=== PATIENT | female | born 1960 | race Caucasian/White ===

== ENCOUNTER → 2016-04-28 | Outpatient (CLI) | payer MEDICAID ==
[~2016-04-28] MED LIST: ASPIRIN LO-DOSE81 MG PO; BUMEX1 MG PO; COLACE100 MG PO; CORDARONE,PACE200 MG PO; COREG12.5 MG PO; CRANBERRY-PROB1 EACH PO; DIGESTIVE PROB250 MG PO; ELIQUIS5 MG PO; FAMOTIDINE20 MG PO; FEOSOL325 MG PO; FLOMAX0.4 MG PO; IMDUR30 MG PO; JANUVIA50 MG PO; K-TAB 10MEQ10 MEQ PO; LANTUS SOL100 UNIT/1 SUB-Q; LASIX40 MG PO; LEVEMIR100 UNIT/1 SUB-Q; LIPITOR80 MG PO; MEVACOR20 MG PO; NORCO 5-325 MG1 TAB PO; NORCO 5-325 TA1 EACH PO; PEPCID20 MG PO; PRINIVIL (ZESTR20 MG PO; RANEXA1000 MG PO; TYLENOL325 MG; TYLENOL325 MG PO; ZESTRIL2.5 MG PO
[2016-04-28 08:42] LABS: CREATININE 0.8 mg/dL (0.5-1.1); ESTIMATED GFR (MDRD EQUATION) > 60
== END | disposition disaster alternative care site (69) ==
LOC: GLAB 07:56
PROVIDERS: Specialist
DX: M62.89 Other specified disorders of muscle (principal); M51.34 Other intervertebral disc degeneration, thoracic region; M47.816 Spondylosis without myelopathy or radiculopathy, lumbar region; M40.204 Unspecified kyphosis, thoracic region
CPT/HCPCS: A9577

== ENCOUNTER → 2016-06-02 | Outpatient (CLI) | payer MEDICAID ==
--- NOTE | ~2016-06-02 | NDGEN ---
PATIENT'S NAME: RIYA BANKS [facility] AGE: 56 Y [address] ROOM: [place] [address] LOCATION: [facility] ADMIT DATE: 06/02/2016 Neurodiagnostics DISCHARGE DATE: FAMILY PHYSICIAN: Mary Jo Dai MD ATTENDING PHYSICIAN: FRANCY MEDINA PROCEDURE: NERVE CONDUCTION STUDY, EMG OF THE RIGHT UPPER EXTREMITY. DATE OF PROCEDURE: 06/02/2016 CLINICAL DIAGNOSIS: INDICATION: This 56-year-old female with long-standing diabetes, she has been complaining about lower extremity weakness, particularly proximal weakness, getting up from a seated position. She also has an odd complaint about numbness in her perineum and groin region that has been persistent. This numbness also extends into the sacral innervated region of the buttocks. There is also a history of some chronic numbness in her feet that is symmetric. Nerve conduction studies were performed in the motor, perineal, and tibial nerves as well as the sural sensory nerve. There was absent sural nerve action potentials seen typical for this patient with diabetes. The motor onset latencies were all essentially within normal limits. However, the amplitudes were very a low, less than 1 mV in the bilateral peroneal nerves as well as low amplitudes seen in the left and right tibial region. The nerve conduction velocities however appeared to be fairly well preserved and did not seem to be associated with any demyelinating polyneuropathy. Needle were placed into the right iliopsoas, vastus lateralis, tibialis anterior, and medial gastrocnemius muscles. There was no evidence of any abnormal spontaneous electrical activity seen in any of these muscles. These muscles all fired normally with normal sizes of motor unit action potentials and these motor unit action potentials showed normal motor recruitment. There was normal sizes, durations, and amplitudes of these motor units. There was some mild polyphasia of these motor units, but did not seem to be abnormal. 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 The needle EMG failed to find any evidence of a myopathy in the muscles tested. The muscles revealed full recruitment of motor unit action potentials. Therefore, I do not find any evidence to support a proximal myopathy at this time and the etiology for the patient's numbness in the area of the sacral innervated nerves are currently obscure. A review of the thoracic MRI reveals no evidence of a conus medullaris abnormality and the lumbar MRI furthermore does PATIENT'S NAME: RIYA BANKS [facility] AGE: 56 Y [address] ROOM: [place], [place] [address] LOCATION: [facility] ADMIT DATE: 06/02/2016 Neurodiagnostics DISCHARGE DATE: FAMILY PHYSICIAN: Mary Jo Dai MD ATTENDING PHYSICIAN: FRANCY MEDINA not give any further evidence for the patient's proximal weakness. Again, there is only evidence to support a distal symmetric axonal neuropathy likely associated with the patient's long-standing history of diabetes. MD KUSUM MORROW/frank /[id number] dtt: 06/23/16 1315 , FRANCY MEDINA dtd: 06/02/16 1842
== END | disposition disaster alternative care site (69) ==
LOC: GNEU 14:20
DX: M62.89 Other specified disorders of muscle (principal)

== ENCOUNTER → 2016-06-24 | Outpatient (CLI) | payer MEDICAID | LOC: LGSMG 17:03 | DX: R30.0 Dysuria (principal) ==

== ENCOUNTER → 2016-08-05 | Outpatient (CLI) | payer MEDICAID ==
[2016-08-05 09:04] LABS: ALBUMIN 3.6 gm/dL (3.5-5.0); ANION GAP 12.2 (10.0-19.0); CALCIUM 8.7 mg/dL (8.5-10.5); CREATININE 1.1 mg/dL (0.5-1.1); POTASSIUM 4.2 mMol/L (3.7-5.1); TOTAL BILIRUBIN 0.5 mg/dL (0.0-1.5); TOTAL PROTEIN 7.3 g/dL (6.0-8.4)
== END | disposition disaster alternative care site (69) ==
LOC: LNHI 08:44
PROVIDERS: Internal Medicine Interventional Cardiology
DX: I25.5 Ischemic cardiomyopathy (principal); I25.10 Atherosclerotic heart disease of native coronary artery without angina pectoris

== ENCOUNTER 2016-08-17 08:39 | Day surgery (SDC) | payer MEDICAID ==
[~2016-08-17] VITALS: Ht 175.3 cm; Wt 107.3 kg
--- NOTE | ~2016-08-17 | OR ---
PATIENT'S NAME: RIYA VICTOR [facility] AGE: 56 Y [address] ROOM: [place] [address] LOCATION: [facility] ADMIT DATE: 08/17/2016 OR/Procedure Report DISCHARGE DATE: 08/18/2016 FAMILY PHYSICIAN: Mary Jo Dai MD ATTENDING PHYSICIAN: Anderson Poe SURGEON: Anderson Poe DO RN OTOLARYNGOLOGY: DATE OF PROCEDURE: 08/17/2016 PREOPERATIVE DIAGNOSIS: Ischemic cardiomyopathy. POSTOPERATIVE DIAGNOSIS: Ischemic cardiomyopathy. PROCEDURE: Insertion of dual-chambered ICD via the left subclavian vein. REFERRING PHYSICIAN: Ely Sarah MD. BRIEF HISTORY: Mrs. Victor is a 56-year-old white female with the above-noted diagnosis. She has been brought to the operative suite today after informed consent was obtained. DESCRIPTION OF PROCEDURE: The anterior chest wall sterilely prepped and draped in usual fashion. 1% lidocaine was used to infiltrate the area of the left infraclavicular space and the patient was placed into a steep Trendelenburg position. The subclavian vein was then accessed x2 and guidewires placed under fluoroscopic guidance into the right atrium. An incision was created and pocket was formed. Electrocautery was used for hemostasis and the guidewires were brought through the incision via sheath and dilator assembly we began to place our leads. We began with our ventricular lead, it is a [employer] [place] 4-site ICD lead, model 0295, serial #[id number]. The lead was placed into the base of the right ventricle sensing R- waves of 10.2 with a measured threshold of 1.1 V, 0.5 milliseconds, pacing impedance of 442 ohms, and a shock impedance of 46 ohms. In a similar fashion, we placed our atrial lead, and also a [employer] lead, Ingevity MRI, model 7741, serial #[id number]. The atrial lead was placed in the right atrial appendage and we are sensing P waves of 1.7 mV with a measured threshold of 0.8 V at 0.5 milliseconds with pacing impedance of 598 ohms. Each lead was now connected to the generator, which is [employer] Inogen EL, model #D142, serial #[id number]. Finally, the leads and generator were placed into the pocket. Appropriate sensing and pacing were noted. Fluoroscopy showed good lead and generator position. The incision was closed in a layered fashion with 2-0 Vicryl and 4-0 Monocryl. Pressure dressings applied. Sterile dressing was applied. The patient was transferred to the recovery area in stable condition. PATIENT'S NAME: RIYA VITCOR [facility] AGE: 56 Y [address] ROOM: [place] [address] LOCATION: [facility] ADMIT DATE: 08/17/2016 OR/Procedure Report DISCHARGE DATE: 08/18/2016 FAMILY PHYSICIAN: Mary Jo Dai MD ATTENDING PHYSICIAN: Anderson Poe ANDERSON POE DO MCB/modl /[id number] d: 08/18/162116 t: 08/20/16 1515, OPERATIVE SUMMARY
[~2016-08-17 08:39] MED LIST changes: -IMDUR30 MG PO; -NORCO 5-325 TA1 EACH PO; -TYLENOL325 MG PO
[2016-08-17 09:51] LABS: BILIRUBIN URINE NEGATIVE (NEGATIVE); BLOOD URINE NEGATIVE /UL (NEGATIVE); COLOR URINE YELLOW (YELLOW); GLUCOSE URINE NEGATIVE (NEGATIVE); KETONE URINE NEGATIVE (NEGATIVE); LEUKOCYTES URINE 500 /UL (NEGATIVE); NITRITE URINE NEGATIVE (NEGATIVE); PROTEIN URINE 15 mg/dL (NEGATIVE); TURBIDITY URINE 1+ (CLEAR); UROBILINOGEN URINE NORMAL (NORMAL)
[2016-08-17 10:00] LABS: BACTERIA URINE RARE (NEGATIVE); EPITHELIAL URINE RARE #/HPF (NEGATIVE); RBC URINE 0-2 #/HPF (NEGATIVE)
[2016-08-17 10:14] LABS: INR - (THERAPEUTIC) 0.97 (0.92-1.07); PROTIME 10.2 SECONDS (9.8-11.4)
--- NOTE | 2016-08-17 17:40 | NUR ---
Significant Event:Patient had pacemaker placed left chest. Dressing is clean and dry. Has had ice to it, and had pain pill once for tenderness. Accucheck when returning to floor was 133, at 1700-136. Has been up to bathroom without difficulty. Has sling to left arm. Follow up:Monitor post pace maker, home tomorrow
--- NOTE | 2016-08-18 05:05 | NUR ---
Significant event: A/O x 3. Dressing to left subclavian C/D/I. Ice Pack to area off and on. Sling to left arm at all times. Patient up in room ad cecilio. VSS. Plan to D/C home today.
[2016-08-18] MEDS ORDERED: NORCO 5-325 TA1 EACH PO (09:57)
--- NOTE | 2016-08-18 10:59 | NUR ---
1000 Was going to stop and see Lucette before she left to make sure there were no CM needs before she dismissed. GRADUATE ASSISTANT ATHLETIC TRAINER was in getting her dressed and ready to dismiss so I didn't see her. CM to continue to follow and assist. Plan home today.
--- NOTE | 2016-08-18 12:01 | NUR ---
Significant Event: A/O x3, cooperative with cares. VSS, SBPs 140-160s, HRs 70-80s, on room air. 1 tab of [place] given at 0859 for c/o pain to pace maker site; relief noted. Up in room ad cecilio; L) arm remains in envelope sling. Dismissal instructions given to patient et daughter; verbalized understanding. Dismissed to front lobby per w/c, accompanied by nursing resident et daughter. Follow up:
[2016-10-28] MEDS ORDERED: TYLENOL325 MG PO (14:16)
== END 2016-08-18 11:00 | disposition disaster alternative care site (69) ==
LOC: GPCU 08:39 → GSDC 08:39
PROVIDERS: Thoracic Surgery (Cardiothoracic Vascular Surgery)
PROC: 0JH608Z Insertion of Defibrillator Generator into Chest Subcutaneous Tissue and Fascia, Open Approach (ICD-10-PCS; principal; 2016-08-17)
PROC: 02HK3KZ Insertion of Defibrillator Lead into Right Ventricle, Percutaneous Approach (ICD-10-PCS; 2016-08-17)
PROC: 02H63KZ Insertion of Defibrillator Lead into Right Atrium, Percutaneous Approach (ICD-10-PCS; 2016-08-17)
DX: I25.5 Ischemic cardiomyopathy (principal); I10 Essential (primary) hypertension; E78.5 Hyperlipidemia, unspecified; I50.9 Heart failure, unspecified; I25.10 Atherosclerotic heart disease of native coronary artery without angina pectoris; G47.30 Sleep apnea, unspecified; I25.2 Old myocardial infarction; I48.91 Unspecified atrial fibrillation; J44.9 Chronic obstructive pulmonary disease, unspecified; E66.9 Obesity, unspecified; F17.200 Nicotine dependence, unspecified, uncomplicated; E11.9 Type 2 diabetes mellitus without complications; Z68.35 Body mass index [BMI] 35.0-35.9, adult; Z95.1 Presence of aortocoronary bypass graft; Z98.51 Tubal ligation status; Z98.890 Other specified postprocedural states; Z79.4 Long term (current) use of insulin; Z79.82 Long term (current) use of aspirin; Z88.7 Allergy status to serum and vaccine; Z88.8 Allergy status to other drugs, medicaments and biological substances
CPT/HCPCS: C1721; C1895; C1898; J0690; J2001; J2250; J2405; J7030

== ENCOUNTER → 2016-10-23 | Outpatient (CLI) | payer MEDICAID ==
[~2016-10-23] MED LIST changes: +IMDUR30 MG PO; +NORCO 5-325 TA1 EACH PO; +TYLENOL325 MG PO
[2016-10-23 13:19] LABS: ANION GAP 11.6 (10.0-19.0); BLOOD UREA NITROGEN 31 mg/dL (6-24); CALCIUM 9.3 mg/dL (8.5-10.5); CHLORIDE 105 mMol/L (96-110); CO2 26 mMol/L (22-32); CPK 86 IU/L (21-215); CREATININE 1.3 mg/dL (0.5-1.1); POTASSIUM 4.6 mMol/L (3.7-5.1); SODIUM 138 mMol/L (135-145)
== END ==
LOC: LNHI 12:55
PROVIDERS: Internal Medicine Interventional Cardiology
DX: I50.42 Chronic combined systolic (congestive) and diastolic (congestive) heart failure (principal); R07.9 Chest pain, unspecified; E78.5 Hyperlipidemia, unspecified; I25.10 Atherosclerotic heart disease of native coronary artery without angina pectoris

== ENCOUNTER → 2016-10-27 | Outpatient (CLI) | payer MEDICAID ==
--- NOTE | ~2016-10-27 | ESTC ---
Cardiac Perfusion Imaging Demographics Patient Name JOCELYN Saini Gender Female Patient Number [id number] Race Visit Number [id number] [place] [id number] Room Number Accession Number [id number] Height 69 inches Date of 1960 Weight 235 pounds Interpreting Keara Graves Date of study 10/27/2016 Physician Supervising /SHARMILAP Keara Graves NM Technologist Irena Hi MD Ordering Physician Keara Graves Stress MD forensic technician Stress ECG Reading Keara Graves Nurse Zita Sims Physician RN The procedure was explained in detail to the patient. Risks, complications and alternative treatments were reviewed. Written consent was obtained. Medications Reviewed with Patient prior to Procedure. Procedure Admit Source:Other. Procedure Type: Nuclear Stress Test:Pharmacological, Cardiolite Stress Test Procedure Start time: 10/27/2016 08:35 Indications: Shortness of breath and Chest tightness. Risk Factors The patient risk factors include:prior CABG on 06/27/2015;peripheral arterial disease, obesity, Current/Recent(w/in 1 year) tobacco use, treated hypercholesterolemia, treated hypertension, family history of premature CAD, insulin treated diabetes mellitus, chronic lung disease, dyslipidemia, prior heart failure and prior NH . Conclusions Impression ECG portion of the lexiscan stress test is clinically negative for ischemia by diagnostic criteria. Myocardial perfusion imaging is severely abnormal. The images reveal a reversible defect in the mid to distal anterior wall, anterolateral wall and apex consistent with ischemia in the territory of the left anterior descending artery . Overall left ventricular systolic function was abnormal. Calculated LVEF is 40%, there is hypokinesis of the mid to distal anterior wall and apex. The TID ratio is not elevated and is 0.93. This is a intermediate to high risk stress test. There are no previous studies for comparison . Stress Protocols Resting ECG Normal sinus rhythm non specific st changes Resting HR:63 bpm Resting BP:123/65 mmHg Pre-stress physical exam: Patient assessed by Dr Valerio prior to testing. Stress Protocol:Pharmacologic Peak HR:84 bpm HR/BP product:88572 Peak BP:147/70 mmHg Predicted HR: 166 bpm % of predicted HR: 51 Reason for termination:Chest pain ECG Findings No ECG changes suggestive of ischemia. Arrhythmias No rhythm abnormality. Symptoms Nausea. Chest tightness. Stress Interpretation Appropriate hemodynamic response to Lexiscan. No significant ST-T wave changes with Lexiscan. ECG portion is negative for ischemia by diagnostic criteria. Imaging Results Applied corrections - Motion correction applied High risk findings Summed scores - Summed stress score: 18 - Summed rest score: 10 - Summed difference score: 8 Stress ejection Ejection fraction:40 % EDV :209 ml ESV :125 ml Stroke volume :84 ml LV mass :212 gr Imaging Protocols Rest Stress Isotope:Tc99m Sestamibi IV Isotope: Tc99m Sestamibi IV Isotope dose:15 mCi Isotope dose:45.4 mCi Date:10/27/2016 07:22 Date:10/27/2016 09:08 Technique: SPECT Technique: Gated Supine SPECT Supine Scan Time:45-60 minutes post Scan Time:45-60 minutes post injection injection Procedure Medications - Regadenoson (Lexiscan) 0.4 mg IV over 10-15 sec. I.V. 0.4 mg. Medications administered per verbal order and read back to physician prior to administration. Medical History Admission Data Admission date: 10/27/2016 Admission Time: 07:00 Hospital Status: Outpatient. Signatures dtt: BALWINDER GRIFFITHS dtd: 10/27/16 0835 Physician Self Edit
== END ==
LOC: GRAD 07:00
DX: I20.0 Unstable angina (principal); I21.09 ST elevation (STEMI) myocardial infarction involving other coronary artery of anterior wall; I51.89 Other ill-defined heart diseases
CPT/HCPCS: A9500; J2785

== ENCOUNTER 2016-10-30 06:57 | Outpatient (CLI) | payer MEDICAID ==
[~2016-10-30] VITALS: Ht 175.3 cm; Wt 106.4 kg
--- NOTE | ~2016-10-30 | CATH ---
Cardiac Diagnostic Report Demographics Patient Name JOCELYN Saini Gender Female Date of 1960 Age 56 year(s) Patient Number [id number] Date of Study 10/30/2016 Visit Number [id number] Room Number [id number] [place] [id number] Ht 175.26 cm Wt 106.4 kg Referring Suhas Mckeon Primary Physician Physician Performing [place] Secondary Physician Physician Ely ESPINAL Diagnostic [facility] Assisting Physician Physician Ely ESPINAL Interventional Physician Biophysics Professor Physician Findings and Conclusions Diagnostic Findings and Conclusion Critical cheesh-na TVD. 5/5 bypass grafts patent. COOK to LAD patent. SVG (sequential Y graft) to OM1, OM2 patent. SVG to PDA patent. SVG to Diag patent. Diagnostic Recommendations Medical therapy. Imdur 30 mg po q day. Patient will be discharged later today. Continue current medications. Hydration and followup creatinine. Patient has been instructed to not lift anything more than 5 pounds for 1 week. I will plan on seeing the patient back in 3 week(s). Aggressive risk factor management. Aggressive medical therapy for coronary artery disease. Recommend aggressive risk factor modification. Procedure Description The patient was brought to the diagnostic cardiac catheterization-EP laboratory in the fasting, non-sedated state. Informed consent was obtained in the written and verbal form after the risks and benefits were explained. The patient had no further questions and agreed to proceed. The planned puncture-incision site(s) were shaved and prepped with ChloraPrep and draped in the usual sterile manner. Conscious sedation, supplemental oxygen, and pain control medications were delivered by a registered nurse under physician guidance. Surface ECG rhythm, blood pressure measurement, and pulse oximetry were monitored throughout the procedure. Arterial access. The access site was infiltrated with lidocaine. The vessel was entered with the Seldinger technique. A sheath was advanced into the vessel and used for catheter placement. Selective left coronary angiography. A catheter was advanced into the left coronary vessel ostium under Fluoroscopic guidance. Contrast was injected by hand. Images were obtained in multiple projections. Selective right coronary angiography. A catheter was advanced into the right coronary vessel ostium under fluoroscopic guidance. Contrast was injected by hand. Images were obtained in multiple projections. Selective COOK graft angiography. A catheter was advanced into the left internal mammary graft ostium under fluoroscopic guidance. Contrast was injected by hand. Images were obtained in multiple projections. Selective SVG angiography. A catheter was advanced into the graft proximal anastomosis under fluoroscopic guidance. Contrast was injected by hand. Images were obtained in multiple projections. Left heart catheterization. A catheter was advanced across the aortic valve to the left ventricle under fluoroscopic guidance. Resting hemodynamics were obtained. Arterial artery hemostasis. Hemostasis was achieved. The patient was transferred to a regular nursing floor via cart accompanied by a nurse. The patient left the laboratory in stable condition. Diagnostic Cath Status: Elective Procedure Procedure Type Indications: Positive Nuclear: High, Chest tightness, Hypertension, Dyslipidemia and History of CABG. The procedure was explained in detail to the patient. Risks, complications and alternative treatments were reviewed. Written consent was obtained. Medications Reviewed with Patient prior to Procedure. Angiographic Findings Dominance: Right Cardiac Arteries and Lesion Findings LMCA: Normal (0% Stenosis). LAD: Lesion on Prox LAD: Proximal subsection.70% stenosis . Lesion on Mid LAD: Mid subsection.90% stenosis . LCx: Lesion on Prox CX: Proximal subsection.80% stenosis . Lesion on 1st Ob Lianne: Proximal subsection.90% stenosis . RCA: Lesion on Prox RCA: Comments:unable to cannulate. Cardiac Grafts - There is a COOK graft that originates at the COOK and attaches to the Mid LAD (patent). - There is a Vein graft that originates at the Aorta Left and attaches to the 1st Diag (patent). - There is a Vein graft that originates at the Aorta Left and attaches to the 2nd Diag (patent). - There is a Vein graft that originates at the Aorta Left and attaches to the 1st Ob Lianne (patent). - There is a Vein graft that originates at the Aorta Right and attaches to the R PDA (patent). Coronary Tree Procedure Data Procedure Date Date: 10/30/2016Start: 08:39 AMEnd: 09:11 AM Entry Locations - Retrograde Percutaneous access was performed through the Right Femoral artery (Primary location). A 6 Fr sheath was inserted. Hemostasis was successfully obtained using Perclose ProGlide (Ralph). Closure Comments: Deployed by Denise Loya. Manual pressure held for 3 minutes.. Procedure Medications Order and Administration + + + +-------+ !Time !Medication !Dosage !Route ! + + + +-------+ !10/30/2016 08:37 AM !Versed !1 mg !I.V. ! + + + +-------+ !10/30/2016 08:38 AM !Fentanyl !50 mcg !I.V. ! + + + +-------+ !10/30/2016 08:51 AM !Oxygen !2 l/min !NC ! + + + +-------+ !10/30/2016 09:03 AM !Fentanyl !50 mcg !I.V. ! + + + +-------+ !10/30/2016 09:09 AM !Oxygen ! !NC ! + + + +-------+ Devices Used - A5 Fr. BS JL 3.5 Diag. Catheterwas used for:Was not used. - A5 Fr. BS JL 4 Diag. Catheterwas used for:Left coronary angiography. - A5 Fr. BS JR 4 Diag. Catheterwas used for:Right coronary angiography. - A5 Fr. BS IMT Diag. Catheterwas used for:COOK. Contrast Material - Isovue 140326 ml Fluoroscopy Time: Diagnostic: 10:06 minutes. Total: 10:06 minutes. Fluoroscopy Dose: Diagnostic: 1479 mGy. Total: 1479 mGy. Estimated Blood Loss: 10 ml. Medical History Performed Procedures and Imaging Results - Stress testing with SPECT MPIwas performed. Results were: Positive. Risk/Extent of ischemia was: High risk. History of Disease + +----+--------+ !Diagnosis !Date!Comments! + +----+--------+ !CAD ! ! ! + +----+--------+ !Hypertension ! ! ! + +----+--------+ !Diabetes ! ! ! + +----+--------+ !Prior Surgery ! ! ! + +----+--------+ Allergies - Other:(epinephrine,tetanus vaccine). Risk Factors The patient risk factors include: prior CABG on 06/27/2015;peripheral arterial disease, treated hypercholesterolemia, treated hypertension, family history of premature CAD, insulin-treated diabetes mellitus, chronic lung disease, last creatinine: 1.2 mg/dl, creatinine clearance: 90.02 ml/min, dyslipidemia, Current/Recent(w/in 1 year) tobacco use, prior heart failure and prior [place] . Admission Data Admission Date: 10/30/2016 Admission Time: 06:57 AM Admit Source: Other Insurance Payors: Medicaid. Admission Medications + +------+------+ + + + + !Medication !Dosage!Times !Last !Last !Administered !Comments ! ! ! !Per !Delivery !Delivery ! ! ! ! ! !Day !Date !Time ! ! ! + +------+------+ + + + + !Aspirin ! ! ! ! !Yes ! ! !(any) ! ! ! ! ! ! ! + +------+------+ + + + + !DEBBIE ! ! ! ! !Yes ! ! !Inhibitor ! ! ! ! ! ! ! !(any) ! ! ! ! ! ! ! + +------+------+ + + + + !Beta Dg! ! ! ! !Yes ! ! !(any) ! ! ! ! ! ! ! + +------+------+ + + + + !Statin (any)! ! ! ! !Yes ! ! + +------+------+ + + + + Clinical Evaluation Leading to Procedure - The patient's CAD presentation was assessed as: Unstable angina. - The patient's anginal syndrome during the past two weeks was assessed as: Class III according to the [place] Cardiovascular Society Classification System (CCS). Anti-anginal medications were prescribed during the past two weeks. The medications are: Beta Blockers and Ranolazine. - The patient has been in a state of heart failure within the past two weeks. - The patient's heart failure status was assessed as NYHA Class II, with CHF symptoms of MONTES. Hemodynamics Condition: Rest O2 Consumption: Estimated: 211.05Heart Rate: 67 bpm Pressures (mmHg) +-----+ + !Site !Pressure ! +-----+ + !AO !139/66 (94) ! +-----+ + !LV !114/0 ,3 ! +-----+ + !LV !101/3 ,3 ! +-----+ + !AO !128/53 (82) ! +-----+ + !LV !109/1 ,1 ! +-----+ + Valve Gradients and Areas + +---------+---------+---------+ +---------+ + !Valve !Peak !Mean !Area !Index !Flow !Source ! + +---------+---------+---------+ +---------+ + !Aortic !0 ! ! ! ! ! ! + +---------+---------+---------+ +---------+ + !Aortic !0 ! ! ! ! ! ! + +---------+---------+---------+ +---------+ + Shunts Oxygen Values O2 Capacity 180.88 O2 Consumption 211.05 Signatures dtt: ELY GRIFFITHS dtd: 10/30/16 0839 Physician Self Edit
[~2016-10-30 06:57] MED LIST changes: -IMDUR30 MG PO
[2016-10-30 07:43] LABS: BASOPHIL # 0.1 K/uL (0.0-0.2); BASOPHIL % 0.8 %; EOSINOPHIL # 0.2 K/uL (0.0-0.5); EOSINOPHIL % 2.4 %; HEMATOCRIT 39.3 % (33.0-46.0); HEMOGLOBIN 13.3 g/dL (10.0-15.0); IMMATURE GRANULOCYTE % 0.3 %; LYMPHOCYTE # 1.9 K/uL (0.8-4.0); LYMPHOCYTE % 25.2 %; MCH 32.4 pg (27.0-34.0); MCHC 33.8 gm/dL (32.0-36.5); MCV 95.6 fl (83.0-98.0); MONOCYTE # 0.7 K/uL (0.0-1.0); MONOCYTE % 8.7 %; MPV 10.3 fl (9.4-12.4); NEUTROPHIL # (ANC) 4.8 K/uL (1.8-7.8); NEUTROPHIL % 62.6 %; NRBC % 0 /100WBC (0-0.00); PLATELET COUNT 138 K/uL (150-450); RBC 4.11 M/uL (3.50-5.50); WBC 7.6 K/uL (4.0-11.0)
[2016-10-30 07:52] LABS: INR - (THERAPEUTIC) 1.01 (0.92-1.07); PROTIME 10.6 SECONDS (9.8-11.4); PTT 27 SECONDS (25-32)
[2016-10-30 07:57] LABS: ALBUMIN 3.4 gm/dL (3.5-5.0); ANION GAP 8.1 (10.0-19.0); CALCIUM 8.5 mg/dL (8.5-10.5); CREATININE 1.2 mg/dL (0.5-1.1); POTASSIUM 4.1 mMol/L (3.7-5.1); TOTAL PROTEIN 6.7 g/dL (6.0-8.4)
[2016-10-30 08:03] LABS: TOTAL BILIRUBIN 0.8 mg/dL (0.0-1.5)
[2016-10-30] MEDS ORDERED: IMDUR30 MG PO (11:06)
== END 2016-10-30 17:00 | disposition disaster alternative care site (69) ==
LOC: GCAT 06:57 → GPCU 06:57 → GPOC 07:00 → GCAT 17:00
PROVIDERS: Internal Medicine Interventional Cardiology
PROC: 4A023N7 Measurement of Cardiac Sampling and Pressure, Left Heart, Percutaneous Approach (ICD-10-PCS; principal; 2016-10-30)
PROC: B216YZZ Fluoroscopy of Right and Left Heart using Other Contrast (ICD-10-PCS; 2016-10-30)
DX: I25.110 Atherosclerotic heart disease of native coronary artery with unstable angina pectoris (principal); I73.9 Peripheral vascular disease, unspecified; E78.00 Pure hypercholesterolemia, unspecified; I10 Essential (primary) hypertension; E11.9 Type 2 diabetes mellitus without complications; E78.5 Hyperlipidemia, unspecified; I25.2 Old myocardial infarction
CPT/HCPCS: C1760; J1644; J2001; J2250; J3010; J7030

== ENCOUNTER → 2016-11-10 | Outpatient (CLI) | payer MEDICAID ==
[~2016-11-10] MED LIST changes: +IMDUR30 MG PO
[2016-11-10 09:52] LABS: ALBUMIN 3.9 gm/dL (3.5-5.0); ANION GAP 11.3 (10.0-19.0); CALCIUM 9.1 mg/dL (8.5-10.5); CREATININE 1.4 mg/dL (0.5-1.1); POTASSIUM 4.3 mMol/L (3.7-5.1); TOTAL PROTEIN 7.5 g/dL (6.0-8.4)
[2016-11-10 09:55] LABS: TOTAL BILIRUBIN 0.6 mg/dL (0.0-1.5)
== END ==
LOC: LNHI 09:22
PROVIDERS: Internal Medicine Interventional Cardiology
DX: I50.42 Chronic combined systolic (congestive) and diastolic (congestive) heart failure (principal); I25.110 Atherosclerotic heart disease of native coronary artery with unstable angina pectoris; E78.5 Hyperlipidemia, unspecified; I25.5 Ischemic cardiomyopathy; I42.0 Dilated cardiomyopathy